=== PATIENT | female | born 1950 | race Caucasian/White ===

== ENCOUNTER 2024-03-20 14:26 | Inpatient (IN) | payer MEDICARE ==
[~2024-03-20 14:26] MED LIST: Iopamidol-370 76% 500 ML MDV (1 ML CHARGE) ONE
[2024-03-20 16:14] VITALS: BMI 34.9
[2024-03-20] MEDS ORDERED: Morphine 2 MG/ML VIAL SLOW IVP PRN (16:28)
[2024-03-20 16:32] LABS: #Basophils 0.04 10x3/uL (0.0-0.2); #Eosinophils Less than 0.03 10x3/uL (0.0-0.7); %Basophils 0.2 % (0.0-1.0); %Eosinophils 0.1 % (0.0-10.0); %Lymphocytes 6.6 % (21.0-51.0); %Neutrophils 83.4 % (42.0-75.0); Hematocrit 35.9 % (36.0-47.0); Hemoglobin 11.5 g/dL (12.0-16.0); Mean Corpuscular Hemoglobin 24.5 pg (27.0-31.0); Mean Corpuscular Volume 76.4 fL (78.0-98.0); Mean Platelet Volume 7.9 fL (7.4-10.4); Platelet Count 588 10x3/uL (130-400); RBC Distribution Width 14.6 % (11.5-14.5)
[2024-03-20 16:46] LABS: INR-International Normal Ratio 1.3; PTT 36.8 sec (22.9-36.1); Prothrombin Time 16.3 sec (12.0-14.7)
[2024-03-20] MEDS: Lactated Ringer's 1,000 ML IV SCH (16:46)
[2024-03-20] MEDS: Piperacillin/Tazobactam 3.375 GM in Sodium Chloride 0.9% 100 ML IVPB SCH ×2 (16:47→21:49)
[2024-03-20 16:48] LABS: Anion Gap 15 mmol/L (10-20); BUN (Urea Nitrogen) 18 mg/dL (9.8-20.1); Calc. Creatinine Clearance 87 mL/min (70-130); Calcium 9.5 mg/dL (7.8-10.44); Carbon Dioxide 24 mmol/L (23-31); Chloride 97 mmol/L (98-107); Estimated GFR 74; Glucose 99 mg/dL (83-110); Potassium 3.9 mmol/L (3.5-5.1); Sodium 132 mmol/L (136-145)
[2024-03-20] MEDS ORDERED: hydrALAZINE 20 MG/ML VIAL SLOW IVP PRN (16:55)
[2024-03-20] MEDS ORDERED: Ondansetron PF 4 MG/2 ML Vial IVP PRN ×2 (16:55→19:31)
[2024-03-20] MEDS ORDERED: Ipratropium/Albuterol 3 ML NEB NEB PRN (16:55)
[2024-03-20] MEDS ORDERED: Lidocaine 1% PF 5 ML VIAL ONE (17:21)
[2024-03-20] MEDS ORDERED: PROPOFOL 20 ML ONE (17:21)
[2024-03-20] MEDS ORDERED: Rocuronium Bromide 10 MG/ML (10ML VIAL) ONE (17:21)
[2024-03-20] MEDS ORDERED: fentaNYL PF 100 MCG/2 ML SYRINGE ONE (18:00)
[2024-03-20] MEDS ORDERED: Piperacillin/Tazobactam 3.375 GM in Sodium Chloride 0.9% 100 ML IVPB SCH (18:00)
[2024-03-20] MEDS: TETANUS, DIPHTHERIA TOX,ADULT (TDVAX) 0.5 ML VIAL IM ONE (18:11)
[2024-03-20] MEDS ORDERED: PHENYLEPHRINE-NS 100 MCG/ML 10 ML SYRINGE ONE ×2 (18:27→20:12)
[2024-03-20] MEDS ORDERED: Methylene Blue 50 MG/10 ML AMPUL ONE (18:44)
[2024-03-20] MEDS ORDERED: Promethazine HCl 25 MG/ML VIAL IM PRN ×2 (19:30→19:31)
[2024-03-20] MEDS ORDERED: Ondansetron HCl/PF 4 MG/2 ML Vial IVP PRN (19:30)
[2024-03-20] MEDS ORDERED: fentaNYL 50 mcg/mL 1 mL Vial ONE (19:30)
[2024-03-20] MEDS ORDERED: Naloxone HCl 0.4 mg/ml Vial IV PRN (19:31)
[2024-03-20] MEDS ORDERED: diphenhydrAMINE 50 MG/ML VIAL IM PRN (19:31)
[2024-03-20] MEDS ORDERED: FENTANYL 500 MCG/10 ML VIAL 2,000 MCG in Sodium Chloride 0.9% 60 ML IV PRN (19:31)
[2024-03-20] MEDS ORDERED: diphenhydrAMINE 25 MG CAP PO PRN (19:31)
[2024-03-20] MEDS ORDERED: diphenhydrAMINE 50 MG/ML VIAL IVP PRN (19:31)
[2024-03-20] MEDS ORDERED: Ondansetron PF 4 MG/2 ML Vial ONE (19:32)
[2024-03-20] MEDS ORDERED: SUGAMMADEX SODIUM 200 MG/2 ML VIAL ONE (19:32)
[2024-03-20] MEDS ORDERED: Dexamethasone 4 mg/ml Vial ONE (19:32)
[2024-03-20] MEDS ORDERED: Communication Order-Pharmacy FS SCH (19:45)
[2024-03-20] MEDS ORDERED: hydrALAZINE 20 MG/ML VIAL ONE (20:51)
[2024-03-21 05:25] LABS: #Basophils Less than 0.03 10x3/uL (0.0-0.2); #Eosinophils Less than 0.03 10x3/uL (0.0-0.7); %Basophils 0.1 % (0.0-1.0); %Monocytes 5.3 % (0.0-10.0); %Neutrophils 89.9 % (42.0-75.0); Hematocrit 37.1 % (36.0-47.0); Hemoglobin 11.7 g/dL (12.0-16.0); Mean Corpuscular HGB CONC 31.5 g/dL (32.0-36.0); Mean Corpuscular Hemoglobin 24.4 pg (27.0-31.0); Mean Corpuscular Volume 77.5 fL (78.0-98.0); Mean Platelet Volume 8.1 fL (7.4-10.4); Platelet Count 625 10x3/uL (130-400); RBC Distribution Width 14.9 % (11.5-14.5); Red Blood Cell (RBC) Count 4.79 mill/uL (4.20-5.40)
[2024-03-21 05:40] LABS: INR-International Normal Ratio 1.3; Prothrombin Time 15.8 sec (12.0-14.7)
[2024-03-21 05:42] LABS: Anion Gap 14 mmol/L (10-20); BUN (Urea Nitrogen) 17 mg/dL (9.8-20.1); Calc. Creatinine Clearance 83 mL/min (70-130); Calcium 9.3 mg/dL (7.8-10.44); Carbon Dioxide 24 mmol/L (23-31); Chloride 102 mmol/L (98-107); Estimated GFR 70; Glucose 144 mg/dL (83-110); Sodium 136 mmol/L (136-145)
[2024-03-21] MEDS: Enoxaparin 40 MG (0.4 mL) SYRINGE SC SCH (09:25)
[2024-03-21 15:17] VITALS: BMI 34.9
[2024-03-22 05:18] LABS: #Basophils 0.03 10x3/uL (0.0-0.2); %Basophils 0.2 % (0.0-1.0); %Eosinophils 0.4 % (0.0-10.0); %Lymphocytes 7.7 % (21.0-51.0); %Monocytes 6.3 % (0.0-10.0); %Neutrophils 84.6 % (42.0-75.0); Hematocrit 32.6 % (36.0-47.0); Hemoglobin 10.1 g/dL (12.0-16.0); Mean Corpuscular Hemoglobin 24.6 pg (27.0-31.0); Mean Corpuscular Volume 79.3 fL (78.0-98.0); Mean Platelet Volume 8.1 fL (7.4-10.4); Platelet Count 575 10x3/uL (130-400); RBC Distribution Width 15.1 % (11.5-14.5); Red Blood Cell (RBC) Count 4.11 mill/uL (4.20-5.40)
[2024-03-22 05:36] LABS: Anion Gap 13 mmol/L (10-20); BUN (Urea Nitrogen) 18 mg/dL (9.8-20.1); Calc. Creatinine Clearance 87 mL/min (70-130); Calcium 8.9 mg/dL (7.8-10.44); Carbon Dioxide 28 mmol/L (23-31); Chloride 103 mmol/L (98-107); Estimated GFR 74; Glucose 90 mg/dL (83-110); Potassium 3.6 mmol/L (3.5-5.1); Sodium 140 mmol/L (136-145)
[2024-03-22] MEDS: Amlodipine 10 MG TAB PO SCH (09:51)
[2024-03-22] MEDS: FLUoxetine HCl 20 MG CAP PO SCH (09:52)
[2024-03-22] MEDS ORDERED: Lactated Ringer's 1,000 ML IV SCH (12:04)
[2024-03-23] MEDS: Acetaminophen 500 MG TAB PO SCH ×2 (11:20→13:05)
[2024-03-24] MEDS ORDERED: traMADol HCl 50 MG TAB PO PRN (07:09)
[2024-03-24] MEDS ORDERED: Ibuprofen 600 MG TAB PO PRN (07:09)
[2024-03-24] MEDS ORDERED: Morphine 2 MG/ML VIAL SLOW IVP PRN (07:09)
[2024-03-24] MEDS: Acetaminophen 325 MG TAB PO SCH (08:25)
[2024-03-24] MEDS: traMADol HCl 50 MG TAB PO SCH (14:02)
[2024-03-26 05:25] LABS: #Basophils 0.05 10x3/uL (0.0-0.2); %Basophils 0.3 % (0.0-1.0); %Eosinophils 1.4 % (0.0-10.0); %Lymphocytes 10.5 % (21.0-51.0); %Monocytes 6.1 % (0.0-10.0); %Neutrophils 80.5 % (42.0-75.0); Hematocrit 33.6 % (36.0-47.0); Hemoglobin 10.3 g/dL (12.0-16.0); Mean Corpuscular HGB CONC 30.7 g/dL (32.0-36.0); Mean Corpuscular Hemoglobin 24.3 pg (27.0-31.0); Mean Corpuscular Volume 79.4 fL (78.0-98.0); Mean Platelet Volume 7.9 fL (7.4-10.4); Platelet Count 551 10x3/uL (130-400); Red Blood Cell (RBC) Count 4.23 mill/uL (4.20-5.40)
[2024-03-26 05:31] LABS: Anion Gap 10 mmol/L (10-20); BUN (Urea Nitrogen) 7 mg/dL (9.8-20.1); Calc. Creatinine Clearance 124 mL/min (70-130); Calcium 8.5 mg/dL (7.8-10.44); Carbon Dioxide 31 mmol/L (23-31); Chloride 101 mmol/L (98-107); Estimated GFR 95; Glucose 95 mg/dL (83-110); Potassium 3.3 mmol/L (3.5-5.1); Sodium 139 mmol/L (136-145)
[2024-03-27 06:31] LABS: #Basophils 0.04 10x3/uL (0.0-0.2); %Basophils 0.3 % (0.0-1.0); %Eosinophils 1.6 % (0.0-10.0); %Lymphocytes 10.6 % (21.0-51.0); %Monocytes 5.5 % (0.0-10.0); Hematocrit 34.7 % (36.0-47.0); Hemoglobin 10.6 g/dL (12.0-16.0); Mean Corpuscular HGB CONC 30.5 g/dL (32.0-36.0); Mean Corpuscular Hemoglobin 24.3 pg (27.0-31.0); Mean Corpuscular Volume 79.4 fL (78.0-98.0); Mean Platelet Volume 7.9 fL (7.4-10.4); Platelet Count 583 10x3/uL (130-400); RBC Distribution Width 14.9 % (11.5-14.5); Red Blood Cell (RBC) Count 4.37 mill/uL (4.20-5.40)
[2024-03-27 06:50] LABS: Anion Gap 12 mmol/L (10-20); BUN (Urea Nitrogen) 6 mg/dL (9.8-20.1); Calc. Creatinine Clearance 128 mL/min (70-130); Calcium 8.7 mg/dL (7.8-10.44); Carbon Dioxide 30 mmol/L (23-31); Chloride 101 mmol/L (98-107); Estimated GFR 96; Glucose 90 mg/dL (83-110); Potassium 3.4 mmol/L (3.5-5.1); Sodium 140 mmol/L (136-145)
[2024-03-28 05:44] LABS: #Basophils 0.08 10x3/uL (0.0-0.2); %Basophils 0.6 % (0.0-1.0); %Eosinophils 1.7 % (0.0-10.0); %Lymphocytes 11.5 % (21.0-51.0); %Neutrophils 78.6 % (42.0-75.0); Hematocrit 34.9 % (36.0-47.0); Hemoglobin 10.7 g/dL (12.0-16.0); Mean Corpuscular HGB CONC 30.7 g/dL (32.0-36.0); Mean Corpuscular Hemoglobin 24.4 pg (27.0-31.0); Mean Corpuscular Volume 79.7 fL (78.0-98.0); Mean Platelet Volume 7.9 fL (7.4-10.4); Platelet Count 550 10x3/uL (130-400); RBC Distribution Width 15.1 % (11.5-14.5); Red Blood Cell (RBC) Count 4.38 mill/uL (4.20-5.40)
[2024-03-28 06:19] LABS: Anion Gap 15 mmol/L (10-20); BUN (Urea Nitrogen) 6 mg/dL (9.8-20.1); Calc. Creatinine Clearance 120 mL/min (70-130); Calcium 8.7 mg/dL (7.8-10.44); Carbon Dioxide 29 mmol/L (23-31); Chloride 100 mmol/L (98-107); Estimated GFR 94; Glucose 86 mg/dL (83-110); Potassium 3.8 mmol/L (3.5-5.1); Sodium 140 mmol/L (136-145)
[2024-03-29 05:20] LABS: #Basophils 0.05 10x3/uL (0.0-0.2); %Basophils 0.4 % (0.0-1.0); %Eosinophils 1.4 % (0.0-10.0); %Lymphocytes 14.6 % (21.0-51.0); %Monocytes 5.5 % (0.0-10.0); %Neutrophils 76.4 % (42.0-75.0); Hematocrit 31.6 % (36.0-47.0); Hemoglobin 9.7 g/dL (12.0-16.0); Mean Corpuscular HGB CONC 30.7 g/dL (32.0-36.0); Mean Corpuscular Hemoglobin 24.5 pg (27.0-31.0); Mean Corpuscular Volume 79.8 fL (78.0-98.0); Mean Platelet Volume 7.8 fL (7.4-10.4); Platelet Count 517 10x3/uL (130-400); RBC Distribution Width 15.6 % (11.5-14.5); Red Blood Cell (RBC) Count 3.96 mill/uL (4.20-5.40)
[2024-03-29 18:03] VITALS: TEMP 97.9
[2024-03-29 20:47] VITALS: BP 129/70
== END 2024-03-29 22:21 | DRG 854 ==
LOC: MSONC 15:02 → SURG B 21:31
PROVIDERS: ADMIT Internal Medicine; ATTEND Surgery
PROC: 3E033XZ Introduction of Vasopressor into Peripheral Vein, Percutaneous Approach (ICD-10-PCS; principal; 2024-03-21)
PROC: 0D1M0Z4 Bypass Descending Colon to Cutaneous, Open Approach (ICD-10-PCS; 2024-03-21)
PROC: 0DTN0ZZ Resection of Sigmoid Colon, Open Approach (ICD-10-PCS; 2024-03-21)
PROC: 3E03329 Introduction of Other Anti-infective into Peripheral Vein, Percutaneous Approach (ICD-10-PCS; 2024-03-21)
DX: A41.51 Sepsis due to Escherichia coli [E. coli] (principal); K57.20 Diverticulitis of large intestine with perforation and abscess without bleeding; I10 Essential (primary) hypertension; E78.5 Hyperlipidemia, unspecified; Z79.899 Other long term (current) drug therapy
CPT/HCPCS: 36415; 51701; 70450; 71045; 74177; 80048; 80053; 81001; 82550; 83605; 83735; 84484; 85025; 85610; 85730; 86850; 86900; 86901; 87040; 87070; 87076; 87077; 87186; 87205; 88307; 88341; 88342; 93005; 93010; 96365; 96367; 97139; A4314; A4649; C1713; J0360; J1100; J1650; J1956; J2405; J2543; J2704; J3010; J7120; Q9967